=== PATIENT | male | born 1985 | race Two or more races ===

== ENCOUNTER 2025-05-09 02:28 | Emergency (ER) | payer SELFPAY ==
[~2025-05-09] VITALS: Ht 162.6 cm; Wt 72.4 kg
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
[2025-05-09] MEDS ORDERED: DOXY100C4 PO (03:14)
[2025-05-09] MEDS ORDERED: IBUP-1456 PO (03:14)
[2025-05-09] MEDS: HYDROcodone-ACET 5/325MG TAB PO ONE (03:15)
[2025-05-09] MEDS: cefTRIAXone SOD 1,000 MG VL IM ONE (03:15)
[2025-05-09] MEDS: LIDOCAINE 1% HCL (LOCAL ANESTH.) INJ 20ML MDV ID ONE (03:15)
[2025-05-09] MEDS: LIDOCAINE 1% HCL (LOCAL ANESTH.) INJ 20ML MDV IJ ONE (03:17)
[2025-05-09 03:24] VITALS: BP 114/81; PULSE 112; RESP 20; TEMP 98.1; O2SAT 96
== END 2025-05-09 03:31 | disposition home or self-care (01) ==
LOC: ER 02:28
DX: L03.115 Cellulitis of right lower limb (principal)
CPT/HCPCS: 96372; 99283; J0696; J2003